=== PATIENT | male | born 1985 | race Caucasian/White ===

== ENCOUNTER 2021-05-28 14:48 | Emergency (ER) | payer MEDICAID, OTHER ==
[~2021-05-28] VITALS: Ht 182.9 cm; Wt 170.0 kg
[~2021-05-28 14:48] MED LIST: FAMO-128 PO; ONDA8TAB6 PO; ONDA8TAB9 PO
[2021-05-28 15:22] LABS: BASOPHILS # (AUTO) 0.1 X10'3 (0-0.2); BASOPHILS % (AUTO) 0.8 % (0-1); EOSINOPHILS # (AUTO) 0.2 X10'3 (0-0.9); EOSINOPHILS % (AUTO) 2.3 % (0-6); HEMATOCRIT 44.7 % (42.0-52.0); LYMPHOCYTES # (AUTO) 1.6 X10'3 (1.1-4.8); LYMPHOCYTES % (AUTO) 20.3 % (21-51); MEAN CORPUSCULAR HEMOGLOBIN 29.9 PG (27.0-31.0); MEAN CORPUSCULAR HGB CONC 33.7 g/dL (33.0-36.5); MEAN CORPUSCULAR VOLUME 88.9 FL (78-98); MEAN PLATELET VOLUME 6.7 FL (7.4-10.4); MONOCYTES # (AUTO) 0.6 X10'3 (0-0.9); MONOCYTES % (AUTO) 7.5 % (2-12); NEUTROPHILS # (AUTO) 5.3 X10'3 (1.8-7.7); NEUTROPHILS % (AUTO) 69.1 % (42-75); PLATELET COUNT 297 X10'3 (140-440); RED BLOOD COUNT 5.03 X10'6 (4.70-6.10); RED CELL DISTRIBUTION WIDTH 13.6 % (11.5-14.5); WHITE BLOOD COUNT 7.7 X10'3 (4.5-11.0)
[2021-05-28 15:37] LABS: ALANINE AMINOTRANSFERASE 18 U/L (12-78); ALBUMIN 3.9 G/DL (3.4-5.0); ALBUMIN/GLOBULIN RATIO 1.2 (1.1-1.5); ALKALINE PHOSPHATASE 117 IU/L (46-116); ANION GAP 8 (8-16); ASPARTATE AMINO TRANSFERASE 14 U/L (10-37); BILIRUBIN,TOTAL 0.5 MG/DL (0.1-1.0); BLOOD UREA NITROGEN 13 MG/DL (7-18); CALCIUM 8.9 MG/DL (8.5-10.1); CHLORIDE 109 MMOL/L (99-107); CREATININE 1.44 MG/DL (0.60-1.10); GLUCOSE 143 MG/DL (70-104); POTASSIUM 3.7 MMOL/L (3.5-5.1); SODIUM 144 MMOL/L (135-145); TOTAL CARBON DIOXIDE 27.2 MMOL/L (24-32); TOTAL PROTEIN 7.2 G/DL (6.4-8.2); eGFR 56 ML/MIN
[2021-05-28 15:47] LABS: ETHANOL < 0.010 GM/DL (0.0-0.010)
[2021-05-28 16:23] LABS: CLARITY,URINE CLEAR (Clear); COLOR,URINE YELLOW (Yellow); GLUCOSE, URINE NEGATIVE (Neg); KETONES,URINE NEGATIVE (Neg); LEUKOCYTE ESTERASE ,URINE NEGATIVE (Neg); NITRITES, URINE NEGATIVE (Neg); OCCULT BLOOD,URINE NEGATIVE (Neg); PH,URINE 5.5 (4.8-8.0); PROTEIN,URINE TRACE mg/dl (Neg)
[2021-05-28 16:29] LABS: UA COLLECTION TYPE CLN CATCH MIDSTREAM
[2021-05-28 16:30] LABS: BACTERIA,URINE NONE SEEN /HPF (Neg); MUCUS STRANDS MODERATE /LPF (Neg); RBC,URINE 0-2 /HPF (0-2); SQUAMOUS EPITHELIAL CELL,UR FEW /LPF (FEW)
--- NOTE | 2021-05-28 16:30 | NUR ---
Pt ambulated to ED-OF with PCT. Pt was calm during transport. Pt was changed into green scrubs, personal belongings were inventoried and stored in locker. Pt isn't talkative regarding why he was on the bridge. Pt did say he doesn't want to and denies suicidal thoughts. Pt denies A/VH.
[2021-05-28 16:35] LABS: URINE AMPHETAMINE SCREEN POSITIVE (Neg); URINE BARBITUATE SCREEN NEGATIVE (Neg); URINE BENZODIAZEPINES SCREEN NEGATIVE (Neg); URINE CANNABINOID SCREEN POSITIVE (Neg); URINE COCAINE SCREEN NEGATIVE (Neg); URINE METHADONE SCREEN NEGATIVE (Neg); URINE OPIATE SCREEN NEGATIVE (Neg); URINE PHENCYCLIDINE SCREEN NEGATIVE (Neg)
--- NOTE | 2021-05-28 17:10 | NUR ---
Faxed packet to [facility]
[2021-05-28] MEDS ORDERED: NO HOME MEDS (19:02)
--- NOTE | 2021-05-28 19:03 | NUR ---
One to one with the patient to assess for severity of mental health symptoms. He appeared sad and his affect was blunted and his replies were soft and monotone. He admits to periodic suicidal thoughts and added that he believes people are "messing with me" He is unsure if it is real or due to his daily meth use. He was very straight forward. He denies a known family history of mental illness. He did state that he was [place] [facility] [place]. He takes no home medications. He denies A/V hallucinaitons. He is very dirty and disheveled. He stated that he does have a trailer on his cousins home. He stated that he has not had any money for food for several days. He is not on SSI or SDI. He was updated on the plan of care.
--- NOTE | 2021-05-28 20:57 | NUR ---
The patient appears to be sleeping
--- NOTE | 2021-05-28 22:54 | NUR ---
The patient appears to be sleeping
--- NOTE | 2021-05-29 01:06 | NUR ---
THe patient appears to be sleeping
--- NOTE | 2021-05-29 04:10 | NUR ---
The patient appears to be sleeping
--- NOTE | 2021-05-29 06:33 | NUR ---
Received patient sleeping, respirations even and unlabored.
--- NOTE | 2021-05-29 08:25 | NUR ---
Pt at bedside eating breakfast.
--- NOTE | 2021-05-29 11:25 | NUR ---
Patient awake sitting up in bed. [facility] is at bedside. Pt appears calm and cooperative. Appears to answering questions appropriately.
--- NOTE | 2021-05-29 13:35 | NUR ---
Pt appears to be sleeping, as audible snoring sound are heard. Respirations even and unlabored.
[2021-05-29 15:31] VITALS: BP 102/65
--- NOTE | 2021-05-29 15:40 | NUR ---
DISCHARGE NOTE: Pt was discharged from unit at 1530. Pt was accepted to [facility] and was escorted to floor with CRN and security. Personal belongings were given to staff as well as the original 5150. Pt has been been calm and cooperative while on unit. Pt denies S/I, A/VH at this time. Pt continues to be guarded and presents with a fatigued affect.
== END 2021-05-29 15:43 ==
LOC: ER 14:49
DX: T14.91XA Suicide attempt, initial encounter (principal); F32.9 Major depressive disorder, single episode, unspecified; R45.851 Suicidal ideations; Z88.0 Allergy status to penicillin; Z79.899 Other long term (current) drug therapy; Z90.49 Acquired absence of other specified parts of digestive tract; Z98.890 Other specified postprocedural states; Z56.0 Unemployment, unspecified; X83.8XXA Intentional self-harm by other specified means, initial encounter; Y93.89 Activity, other specified; Y92.89 Other specified places as the place of occurrence of the external cause; Y99.8 Other external cause status
CPT/HCPCS: 36415; 80053; 80305; 80320; 81001; 84443; 85025; 99285

== ENCOUNTER 2021-05-29 15:03 | Inpatient (IN) | payer MEDICAID ==
[~2021-05-29] VITALS: Ht 180.3 cm; Wt 78.2 kg
[~2021-05-29 15:03] MED LIST changes: -FAMO-128 PO; +NO HOME MEDS; -ONDA8TAB6 PO; -ONDA8TAB9 PO
[2021-05-29] MEDS ORDERED: mag hydrox/Alum hydrox/simeth 30ml oral suspension PO PRN (15:10)
[2021-05-29] MEDS ORDERED: traZODone 50mg tablet PO PRN (15:10)
[2021-05-29] MEDS ORDERED: magnesium hydroxide 30ml (MOM) UD suspension PO PRN (15:10)
[2021-05-29] MEDS ORDERED: acetaminophen 325mg tablet PO PRN ×2 (15:10)
[2021-05-29] MEDS ORDERED: LORazepam 1 MG tablet PO PRN (15:10)
[2021-05-29] MEDS ORDERED: loperamide 2mg capsule PO PRN (15:10)
[2021-05-29 15:41] VITALS: BP 102/60
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
[2021-05-29 19:44] VITALS: BP 102/59
--- NOTE | 2021-05-30 00:06 | NUR ---
Nursing Progress Note: Legal hold: 5150 for danger to self Report received from [employer] with use of SBAR Why are they here: The patient was admitted from the ER after being brought in by [employer] on a 5150 hold after they found him holding on the edge of bridge and making suicidal statements. He has been using methamphetamine daily. He has been depressed and suicidal. He recently had relationship conflicts with his friend and girlfriend. Assessment What has happened this shift: The patient isolated to his bed the entire evening. He did engage in the evening assessment but his replies were soft, monotone,vague and minimal. He appeared sad and depressed. He stated that he did feel sad about what happened between him and his friends but did not elaborate. He denies that he feels suicidal and stated that he wanted to live for his 3 kids but was very unconvincing while stating that. He reports he has no idea where his children are and he is not involved in their life currently. He is unsure if he can return to his housing situation. He denies that he is feeling suicidal or having psychotic symptoms. The patient appears to minimizing his symptoms. Denies thoughts to harm others. S/I, H/I: See above note A/VH: See above note Sleep: The patient stated he slept well in the ER last night ADL's: appeared clean after showering on admit Group attendance: No groups this shift Were meds taken: No scheduled medications Any med S/E NA Mental Status Exam Appearance: Appears stated age. Wearing green hospital scrubs Eye contact: Minimal Behavior: withdrawn, isolating and did not even get up out of bed for the evening snack Speech: soft, minimal, monotone Mood: sad and depressed Affect: congruent to mood Thought process: difficult to fulling assess because the patient is very vague in his replies. Thought Content: Sad about circumstances about his friend and his current situation Cognition: alert and oriented Insight: impaired Judgment: impaired Interventions PRN's used: no Therapeutic interventions: One to one with the patient to assess for severity of depressive symptoms and self harm risk. He is on q 15 minutes safety checks. He was educated for the plan of care and unit routine for the evening. He was also assessed for disordered thoughts Restraints/seclusion/emergency medication: NA Justification of Continued Inpatient Treatment: The patient has not yet been evaluated by the psychiatrist and he presents as very depressed and minimizing his symptoms. He has significant psychosocial stressors including chronic daily methamphetamine use, unstable housing, no income, and poor support in the community. He continues to be an elevated suicide risk if not on the protective environment of the unit.
[2021-05-30 07:30] VITALS: BP 107/64
[2021-05-30 07:42] LABS: HEMOGLOBIN A1C 5.4 % (4.5-6.2)
[2021-05-30 08:22] LABS: CHOL/HDL RATIO 3.3 (0.00-4.99); CHOLESTEROL 129 MG/DL (0-200); HDL CHOLESTEROL 39 MG/DL (35-60); LDL CHOLESTEROL 81 MG/DL (50-100); TRIGLYCERIDES 54 MG/DL (20-135)
--- NOTE | 2021-05-30 17:24 | NUR ---
Nursing Progress Note: Legal hold: 5150 for DTS Report received from [employer]HMA Contreras with use of SBAR Why are they here: The patient was admitted from the ER after being brought in by [employer] on a 5150 hold after they found him holding on the edge of bridge and making suicidal statements. He has been using methamphetamine daily. He has been depressed and suicidal. He recently had relationship conflicts with his friend and girlfriend. Assessment What has happened this shift: RN received pt. asleep in bed. Pt. awoke to eat meals in the community room and then went back to bed. 1:1 done at bedside, Pt. gives little information during interview, preferring to sleep. pt. reports SI without a plan. Pt. reports few support systems but that he does feel hopeful about being able to see his 3 kids some day, he reports he has not seen them in 2 years. Pt. then went back to sleep. S/I, H/I: Passive SI. A/VH: Denies. Sleep: Pt. napped most of the day. ADL's: Independent. Group attendance: No Were meds taken: No scheduled medications Any med S/E NA Mental Status Exam Appearance: Disheveled but clean, wearing green scrubs. Eye contact: Minimal Behavior: Socially withdrawn and sleeping in bed most of the day except to eat meals. Speech: soft, minimal, monotone Mood: Depressed Affect: congruent with mood Thought process: Linear Thought Content: Sleep Cognition: A&Ox3 (Not to time) Insight: impaired Judgment: impaired Interventions PRN's used: None Therapeutic interventions: One to one with the patient to assess for severity of depressive symptoms and self harm risk. He is on q 15 minutes safety checks. He was educated for the plan of care and unit routine for the evening. He was also assessed for disordered thoughts Restraints/seclusion/emergency medication: NA Justification of Continued Inpatient Treatment: The patient has not yet been evaluated by the psychiatrist and he presents as very depressed and minimizing his symptoms. He has significant psychosocial stressors including chronic daily methamphetamine use, unstable housing, no income, and poor support in the community. He continues to be an elevated suicide risk if not on the protective environment of the unit.
[2021-05-30] MEDS ORDERED: nicotine 14mg patch - 24hr TD PRN (18:55)
[2021-05-30] MEDS ORDERED: NICOTINE POLACRILEX 2 MG LOZENGE BC PRN (18:55)
[2021-05-30 19:53] VITALS: BP 103/61
--- NOTE | 2021-05-31 04:15 | NUR ---
Nursing Progress Note: Legal hold: 5150 Involuntary hold for danger to self Report received from [employer] with use of SBAR Why are they here: The patient was admitted from the ER after being brought in by [employer] on a 5150 hold after they found him holding on the edge of bridge and making suicidal statements. He has been using methamphetamine daily. He has been depressed and suicidal. He recently had relationship conflicts with his friend and girlfriend. Assessment What has happened this shift: Patient laying in bed awake at the beginning of shift. Pleasant and cooperative with care; no scheduled medication this shift. Patient endorses depression and denies SI, HI, A/VH this shift; does not appear to be responding to IS and no delusional thought content expressed. He provided minimal responses and hesitates to respond to law writer. Patient did not participate in HS snack and remained in bed through out this shift; observed sleeping and does not appear to be having difficulty. S/I, H/I: Denies A/VH: Denies Sleep: Refer to sleep assessment ADL's: Independent Group attendance: NA Were meds taken: No scheduled medications Any med S/E: NA Mental Status Exam Appearance: Clean and appropriate attire. Eye contact: Minimal Behavior: Isolative, withdrawn, pleasant Speech: Clear, audible, minimal Mood: Depressed Affect: Congruent to mood Thought process: Thought blocking Thought Content: Unable to assess Cognition: Alert and oriented Insight: Impaired Judgment: Impaired Interventions PRN's used: None Therapeutic interventions: One to one with the patient to assess for severity of depressive symptoms and self harm risk. He is on q 15 minutes safety checks. He was educated for the plan of care and unit routine for the evening. He was also assessed for disordered thoughts Restraints/seclusion/emergency medication: NA Justification of Continued Inpatient Treatment: The patient has not yet been evaluated by the psychiatrist and he presents as very depressed and minimizing his symptoms. He has significant psychosocial stressors including chronic daily methamphetamine use, unstable housing, no income, and poor support in the community. He continues to be an elevated suicide risk if not on the protective environment of the unit.
--- NOTE | 2021-05-31 07:59 | NUR ---
MRSA positive: Lab called and pt is positive for MRSA. PT is aware and instructed on hand washing to prevent spreading.
[2021-05-31 08:05] VITALS: BP_SYST 104; BP_SYST 123; BP_DIAS 56; BP_DIAS 72
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
--- NOTE | 2021-05-31 15:28 | NUR ---
Nursing Progress Note: Legal hold: 5150 for DTS Report received from RESHMA Rogers with use of SBAR Why are they here: The patient was admitted from the ER after being brought in by [employer] on a 5150 hold after they found him holding on the edge of bridge and making suicidal statements. He has been using methamphetamine daily. He has been depressed and suicidal. He recently had relationship conflicts with his friend and girlfriend. Assessment What has happened this shift: Pt received asleep in bed. Pt awoke for breakfast but returned to bed right after. Pt did not have am medication scheduled, but was cooperative with am assessment. Pt pretty much only came out of his room for meals and snack time. Pt refused group then complained that all he is doing here is laying around. Pt affect was not quite as flat and he did smile once or twice during interaction. Pt denies suicidal thoughts and says he feels he is ready to leave. S/I, H/I: denies A/VH: Denies. Sleep: Pt. napped most of the day. ADL's: Independent. Group attendance: No Were meds taken: No scheduled medications Any med S/E NA Mental Status Exam Appearance: Disheveled but clean, wearing green scrubs. Initiated taking a shower. Eye contact: Minimal Behavior: Socially withdrawn and sleeping in bed most of the day except to eat meals. Speech: soft, minimal, monotone Mood: Depressed Affect: congruent with mood Thought process: Linear Thought Content: Sleep Cognition: A&Ox3 Insight: impaired Judgment: impaired Interventions PRN's used: None Therapeutic interventions: One to one with the patient to assess for severity of depressive symptoms and self harm risk. He is on q 15 minutes safety checks. He was educated for the plan of care and unit routine for the evening. He was also assessed for disordered thoughts Restraints/seclusion/emergency medication: NA Justification of Continued Inpatient Treatment: The patient has not yet been evaluated by the psychiatrist and he presents as very depressed and minimizing his symptoms. He has significant psychosocial stressors including chronic daily methamphetamine use, unstable housing, no income, and poor support in the community. He continues to be an elevated suicide risk if not on the protective environment of the unit.
[2021-05-31 19:14] VITALS: BP 117/65
--- NOTE | 2021-06-01 04:16 | NUR ---
Nursing Progress Note: Legal hold: 5150 Involuntary hold for danger to self Report received from [employer] with use of SBAR Why are they here: The patient was admitted from the ER after being brought in by [employer] on a 5150 hold after they found him holding on the edge of bridge and making suicidal statements. He has been using methamphetamine daily. He has been depressed and suicidal. He recently had relationship conflicts with his friend and girlfriend. Assessment What has happened this shift: Patient observed sleeping in bed at the beginning of shift. Pleasant and cooperative with care, no scheduled medications this shift. Patient denies SI, HI, A/VH but appears to remain depressed and isolative; he does not appear to be responding to IS and no delusional thought content expressed. Patient did not participate in HS snack and remained in bed through this shift; does not appear to be having difficulty sleeping. S/I, H/I: Denies A/VH: Denies Sleep: Refer to sleep assessment ADL's: Independent Group attendance: NA Were meds taken: No scheduled medications Any med S/E: NA Mental Status Exam Appearance: Clean and appropriate attire. Eye contact: Minimal Behavior: Isolative, withdrawn, pleasant Speech: Clear, audible, minimal Mood: Depressed Affect: Congruent to mood Thought process: Thought blocking Thought Content: Unable to assess Cognition: Alert and oriented Insight: Impaired Judgment: Impaired Interventions PRN's used: None Therapeutic interventions: One to one with the patient to assess for severity of depressive symptoms and self harm risk. He is on q 15 minutes safety checks. He was educated for the plan of care and unit routine for the evening. He was also assessed for disordered thoughts Restraints/seclusion/emergency medication: NA Justification of Continued Inpatient Treatment: The patient has not yet been evaluated by the psychiatrist and he presents as very depressed and minimizing his symptoms. He has significant psychosocial stressors including chronic daily methamphetamine use, unstable housing, no income, and poor support in the community. He continues to be an elevated suicide risk if not on the protective environment of the unit.
[2021-06-01 07:23] VITALS: BP 116/67
--- NOTE | 2021-06-01 13:05 | NUR ---
CASE MANAGEMENT - DISCHARGE NOTE Spoke briefly with Pt today. He reported that upon discharge from here he plans to go back to [place] to live where he was living before. When asked how he would get there, he reported, "I don't have a ride so maybe I'll have to walk." This Sugar [employer]er asked if he would take a bus to which he reported yes. Three bus tickets have been added to his discharge paperwork for him to leave with when he is medically cleared to d/c. His thought content and thought process were WNL. The Sugar [employer]er did not observe any delusional content.He was in a pleasant mood, he shared minimally. He reported again that he does not feel suicidal at this time but does seem to be depressive in presentation. He has not socialized much or come to any groups while he has been here. He seems to stay to himself in his room and in his bed most of the time. He does not feel that he needs follow up services with outpt. mental health. Explained that he can go back to the ER or Access Services at [facility] if he did feel suicidal again. He acknowledged his awareness of these resources. He reported that he is hopeful he can leave soon. Sury Hanson LCSW
--- NOTE | 2021-06-01 16:52 | NUR ---
Discharge note: Patient given clear discharge instructions and all property was returned. Pt voiced understanding. Discharge time: 1457 via public transportation. Bus tickets given. Pt escorted outside by security and staff member with no issues. Patient returning to home in [facility] where he resides. Follow-Up: Patient has been scheduled/referred to the following providers for post-hospital discharge and aftercare treatment. Psychiatrist: Walk in to [facility] Services at [facility] Primary Care Provider: Discharge Address: [address] [place] [id number] Transportation: Patient given community crisis services information and National suicide hotline handout. Resources for education regarding mental illness: [address] [address] For urgent mental health crisis needs please contact Mobile Crisis Outreach Team Sunday through Sunday 8:30am to 5:00pm. . Mobile Crisis Outreach Team [address] [place] [id number] Urgent Out-patient Mental Health Services 365 Days A Year: [facility] [address] [place] [id number] Hours: Mon thru Fri 12pm-9pm Weekends 11am-9pm
== END 2021-06-01 14:57 | disposition home or self-care (01) | DRG 751 ==
LOC: ADULT MH 15:35
PROVIDERS: ADMIT Psychiatry & Neurology Psychiatry; ATTEND Psychiatry & Neurology Psychiatry
DX: F33.9 Major depressive disorder, recurrent, unspecified (principal); F10.10 Alcohol abuse, uncomplicated; F15.10 Other stimulant abuse, uncomplicated; F12.90 Cannabis use, unspecified, uncomplicated; F17.200 Nicotine dependence, unspecified, uncomplicated; Z88.0 Allergy status to penicillin; Z71.6 Tobacco abuse counseling; X83.8XXA Intentional self-harm by other specified means, initial encounter; Y93.89 Activity, other specified; Y92.89 Other specified places as the place of occurrence of the external cause; Y99.8 Other external cause status
CPT/HCPCS: 36415; 80061; 83036; 87081

== ENCOUNTER 2021-06-24 17:30 | Emergency (ER) | payer MEDICAID ==
[~2021-06-24] VITALS: Ht 167.6 cm; Wt 65.9 kg
[2021-06-24 17:38] VITALS: BP 119/76
== END 2021-06-24 17:55 ==
LOC: ER 17:31
DX: T59.91XA Toxic effect of unspecified gases, fumes and vapors, accidental (unintentional), initial encounter (principal); Z56.0 Unemployment, unspecified; Z90.49 Acquired absence of other specified parts of digestive tract; Z98.890 Other specified postprocedural states; Z88.0 Allergy status to penicillin; Y92.9 Unspecified place or not applicable
CPT/HCPCS: 99283

== ENCOUNTER 2022-03-12 02:38 | Emergency (ER) | payer MEDICAID ==
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
[2022-03-12] MEDS ORDERED: TETanus/Pertussis (Acell)/Diphther VAC/PF (Tdap-Adult) 0.5ml syringe IMVAC ONE (03:05)
[2022-03-12 03:19] VITALS: BP 120/94
--- NOTE | 2022-03-12 03:20 | NUR ---
pt given booster shot to right deltoid. wound care given to wound on left upper back. no acute distress.
== END 2022-03-12 03:25 ==
LOC: ER 02:39
DX: S40.022A Contusion of left upper arm, initial encounter (principal); S40.812A Abrasion of left upper arm, initial encounter; F17.200 Nicotine dependence, unspecified, uncomplicated; F12.90 Cannabis use, unspecified, uncomplicated; Z90.89 Acquired absence of other organs; Z98.890 Other specified postprocedural states; Z56.0 Unemployment, unspecified; Z88.0 Allergy status to penicillin; Z20.3 Contact with and (suspected) exposure to rabies; X58.XXXA Exposure to other specified factors, initial encounter; Y93.89 Activity, other specified; Y92.89 Other specified places as the place of occurrence of the external cause; Y99.8 Other external cause status
CPT/HCPCS: 90471; 90715; 99283